=== PATIENT | female | born 1975 | race Caucasian/White ===

== ENCOUNTER 2017-05-07 22:49 | Emergency (ER) | payer OTHER ==
[~2017-05-07] VITALS: Ht 160 cm; Wt 116.9 kg
[~2017-05-07 22:49] MED LIST: DULOXETINE HCL30 MG PO; MEDROL DOSEPAK4 MG PO; MOTRIN800 MG PO; NOHOMEMEDS; PERCOCET 5/31 TABLET PO; PRENATAL1 EACH PO; REGLAN10 MG PO; TORADOL10 MG PO; ZOFRAN4 MG PO
[2017-05-08 02:51] LABS: EOSINOPHIL (%) 1.3 % (0-5); EOSINOPHIL COUNT 0.1 K/uL (0-0.3); HEMATOCRIT 41.9 % (36.0-46.0); IMMATURE GRANULOCYTE (%) 0.4 % (0.0-0.7); INSTRUMENT ABS NEUTROPHIL CT 3.1 K/uL; LYMPHOCYTE COUNT 1.8 K/uL (1.0-2.8); MCH 28.5 PG (29.0-34.0); MCHC 34.1 G/DL (30.0-36.0); MCV 83.6 FL (83-99); MEAN PLAT.VOLUME 10.4 uM^3 (9.5-12.4); MONOCYTE (%) 7.8 % (3-12); MONOCYTE COUNT 0.4 K/uL (0-0.8); NEUTROPHIL (%) 56.8 % (45-76); NEUTROPHIL COUNT 3.1 K/uL (1.8-6.4); PLATELET COUNT 138 K/uL (156-360); RBC DIS.WIDTH-SD 39.2 % (39-53); RED BLOOD COUNT 5.01 M/uL (3.80-5.20); WHITE BLOOD COUNT 5.5 K/uL (4.1-10.2)
[2017-05-08 03:07] LABS: ADD MIUA? YES; BILIRUBIN NEGATIVE; BLOOD SMALL; COLOR STRAW ((YELLOW)); GLUCOSE (STRIP) NEGATIVE; KETONES NEGATIVE; LEUKOCYTES NEGATIVE; NITRITE NEGATIVE; PROTEIN (STRIP) NEGATIVE; SPECIFIC GRAVITY 1.005 (1.000-1.030); UROBILINOGEN 0.2 MG/DL (0.2-1.0)
[2017-05-08 03:07] LABS: CHLORIDE 104 mEq/L (99-109); SODIUM 138 mEq/L (136-147)
[2017-05-08 03:09] LABS: GLUCOSE 106 mg/dL (70-99)
[2017-05-08 03:10] LABS: ANION GAP 9 MEQ/L (2-14)
[2017-05-08 03:11] LABS: TOTAL BILIRUBIN 0.7 mg/dL (0.0-1.0)
[2017-05-08 03:13] LABS: ALKALINE PHOSPHATASE 67 IU/L (3-129); GFR ESTIMATE (CALCULATED) > 59 mL/min/
[2017-05-08 03:14] LABS: UREA NITROGEN (BUN) 12 mg/dL (9-23)
[2017-05-08 03:15] LABS: BACTERIA RARE /HPF; EPITHELIAL CELLS RARE /HPF; MUCUS TRACE /LPF; RED BLOOD CELLS 0-5 /HPF (0-5); UCUL ADDED? NO; WHITE BLOOD CELLS 0-5 /HPF (0-5)
[2017-05-08 03:16] LABS: LIPASE 53 U/L (1.0-51.0)
[2017-05-08] MEDS ORDERED: NORCO 5/3251 TABLET PO (04:59)
[2017-05-08 05:34] VITALS: BP 104/65
== END 2017-05-08 05:36 | disposition home or self-care (01) ==
LOC: EME 22:49
PROVIDERS: Emergency Medicine
DX: I88.0 Nonspecific mesenteric lymphadenitis (principal); Z88.2 Allergy status to sulfonamides; Z88.0 Allergy status to penicillin
CPT/HCPCS: 74176; 76705; 80053; 81003; 83690; 85025; 99281; 99285; J2405; J3010; J7030

== ENCOUNTER → 2017-06-18 | Outpatient (CLI) | payer OTHER ==
[~2017-06-18] MED LIST changes: +NORCO 5/3251 TABLET PO
== END | disposition home or self-care (01) ==
LOC: NUC 07:28
DX: R10.13 Epigastric pain (principal); R10.11 Right upper quadrant pain
CPT/HCPCS: 78227; A9537; J2805

== ENCOUNTER 2018-03-04 05:41 | Day surgery (SDC) | payer BC ==
[~2018-03-04] VITALS: Ht 161.3 cm; Wt 108.8 kg
[~2018-03-04 05:41] MED LIST changes: +GLUCOPHAGE XR,500 MG PO; +MEGACE20 MG PO; +MEGESTROL ACETA20 MG PO; +PAXIL20 MG PO
[2018-03-04 06:01] VITALS: BP 126/74
[2018-03-04] MEDS ORDERED: IBUPROFEN800 MG PO (12:06)
[2018-03-04] MEDS ORDERED: OXYCODONE HCL5 MG PO (12:08)
[2018-03-04 13:21] VITALS: BP 150/72
[2018-03-04 14:59] VITALS: BP 129/74
== END 2018-03-04 15:05 | disposition home or self-care (01) ==
LOC: SDC 05:41
PROVIDERS: Obstetrics & Gynecology Obstetrics
DX: N92.1 Excessive and frequent menstruation with irregular cycle (principal); D25.9 Leiomyoma of uterus, unspecified; E28.2 Polycystic ovarian syndrome; K66.0 Peritoneal adhesions (postprocedural) (postinfection); Z98.51 Tubal ligation status; Z80.3 Family history of malignant neoplasm of breast; Z80.41 Family history of malignant neoplasm of ovary; N85.01 Benign endometrial hyperplasia; E11.9 Type 2 diabetes mellitus without complications; Z79.84 Long term (current) use of oral hypoglycemic drugs; F41.9 Anxiety disorder, unspecified; F32.9 Major depressive disorder, single episode, unspecified; Z88.0 Allergy status to penicillin; Z88.2 Allergy status to sulfonamides; Z88.8 Allergy status to other drugs, medicaments and biological substances
CPT/HCPCS: 82948; 88307; J0131; J1100; J1170; J1580; J1885; J2250; J2405; J3475; J7050; S0020